=== PATIENT | male | born 1945 | race Caucasian/White ===

== ENCOUNTER 2017-07-19 06:34 | Outpatient (CLI) | payer OTHER | END 2017-07-19 06:43 | disposition home or self-care (01) | LOC: LAB 06:34 | DX: E03.8 Other specified hypothyroidism (principal); D68.8 Other specified coagulation defects; D64.89 Other specified anemias; E11.65 Type 2 diabetes mellitus with hyperglycemia; Z12.11 Encounter for screening for malignant neoplasm of colon; E78.2 Mixed hyperlipidemia ==

== ENCOUNTER → 2017-08-19 06:55 | Outpatient (CLI) | payer OTHER | END | disposition home or self-care (01) | LOC: LAB 06:55 | DX: I11.9 Hypertensive heart disease without heart failure (principal); E78.2 Mixed hyperlipidemia ==

== ENCOUNTER 2018-03-23 08:03 | Outpatient (CLI) | payer OTHER | END 2018-03-23 09:02 | disposition home or self-care (01) | LOC: LAB 08:03 | DX: E78.2 Mixed hyperlipidemia (principal); E11.65 Type 2 diabetes mellitus with hyperglycemia; D68.8 Other specified coagulation defects; D64.89 Other specified anemias; E03.8 Other specified hypothyroidism; N40.1 Benign prostatic hyperplasia with lower urinary tract symptoms; N39.0 Urinary tract infection, site not specified ==

== ENCOUNTER → 2018-03-23 15:42 | Outpatient (CLI) | payer OTHER | END | disposition home or self-care (01) | LOC: LAB 15:42 | DX: Z12.11 Encounter for screening for malignant neoplasm of colon (principal); D64.89 Other specified anemias ==

== ENCOUNTER 2018-09-29 07:13 | Outpatient (CLI) | payer OTHER | END 2018-09-29 15:00 | disposition home or self-care (01) | LOC: LAB 07:13 | DX: D68.8 Other specified coagulation defects (principal); D64.89 Other specified anemias; N39.0 Urinary tract infection, site not specified; Z12.11 Encounter for screening for malignant neoplasm of colon; E11.21 Type 2 diabetes mellitus with diabetic nephropathy; E11.65 Type 2 diabetes mellitus with hyperglycemia; E03.8 Other specified hypothyroidism ==

== ENCOUNTER 2018-10-02 09:54 | Outpatient (CLI) | payer OTHER | END 2018-10-02 09:58 | disposition home or self-care (01) | LOC: LAB 09:54 | DX: D68.8 Other specified coagulation defects (principal); D64.89 Other specified anemias; Z12.11 Encounter for screening for malignant neoplasm of colon; E11.21 Type 2 diabetes mellitus with diabetic nephropathy; E11.65 Type 2 diabetes mellitus with hyperglycemia; E03.8 Other specified hypothyroidism ==

== ENCOUNTER 2019-04-19 07:19 | Outpatient (CLI) | payer OTHER | END 2019-04-19 07:37 | disposition home or self-care (01) | LOC: LAB 07:19 | DX: D64.89 Other specified anemias (principal); D68.8 Other specified coagulation defects; E03.8 Other specified hypothyroidism; D51.0 Vitamin B12 deficiency anemia due to intrinsic factor deficiency ==

== ENCOUNTER 2019-04-23 10:47 | Emergency (ER) | payer OTHER ==
[~2019-04-23] VITALS: Ht 172.7 cm; Wt 81.6 kg
[2019-04-23] MEDS ORDERED: COZAAR100 MG PO (11:02)
[2019-04-23] MEDS ORDERED: AMLODIPINE-OLM1 EAC2 PO (11:03)
[2019-04-23] MEDS ORDERED: EUTHYROX25 MCG PO (11:04)
[2019-04-23] MEDS ORDERED: CELEBREX100 MG PO (15:28)
== END 2019-04-23 15:35 | disposition home or self-care (01) ==
LOC: ER 10:47
DX: M62.830 Muscle spasm of back (principal)

== ENCOUNTER 2020-02-12 07:12 | Outpatient (CLI) | payer OTHER ==
[~2020-02-12 07:12] MED LIST: AMLODIPINE-OLM1 EAC2 PO; CELEBREX100 MG PO; COZAAR100 MG PO; EUTHYROX25 MCG PO
== END 2020-02-12 07:30 | disposition home or self-care (01) ==
LOC: LAB 07:12
PROVIDERS: ATTEND Internal Medicine Cardiovascular Disease
DX: I11.9 Hypertensive heart disease without heart failure (principal); E78.1 Pure hyperglyceridemia; E03.8 Other specified hypothyroidism

== ENCOUNTER 2020-02-18 14:50 | Outpatient (CLI) | payer OTHER | END 2020-02-18 14:53 | disposition home or self-care (01) | LOC: RAD 14:50 | PROVIDERS: ATTEND Specialist | DX: M84.374A Stress fracture, right foot, initial encounter for fracture (principal) ==

== ENCOUNTER → 2020-04-30 06:49 | Outpatient (CLI) | payer OTHER | END | disposition home or self-care (01) | LOC: LAB 06:49 | PROVIDERS: ATTEND Internal Medicine Nephrology | DX: I10 Essential (primary) hypertension (principal); R80.8 Other proteinuria ==

== ENCOUNTER 2020-05-05 07:27 | Outpatient (CLI) | payer OTHER | END 2020-05-05 07:34 | disposition home or self-care (01) | LOC: LAB 07:27 | PROVIDERS: ATTEND Internal Medicine Nephrology | DX: I10 Essential (primary) hypertension (principal); R50.9 Fever, unspecified ==

== ENCOUNTER 2020-05-06 08:48 | Outpatient (CLI) | payer OTHER | END 2020-05-06 08:57 | disposition home or self-care (01) | LOC: SONOGRAMA 08:48 | PROVIDERS: ATTEND Internal Medicine Nephrology | DX: Q61.01 Congenital single renal cyst (principal); I10 Essential (primary) hypertension ==

== ENCOUNTER 2020-08-07 07:13 | Outpatient (CLI) | payer OTHER | END 2020-08-07 07:43 | disposition home or self-care (01) | LOC: LAB 07:13 | PROVIDERS: ATTEND Specialist | DX: E11.65 Type 2 diabetes mellitus with hyperglycemia (principal); D51.0 Vitamin B12 deficiency anemia due to intrinsic factor deficiency; N39.0 Urinary tract infection, site not specified; D64.89 Other specified anemias; U07.1 COVID-19; E78.2 Mixed hyperlipidemia ==

== ENCOUNTER 2020-09-17 07:10 | Outpatient (CLI) | payer OTHER | END 2020-09-17 07:16 | disposition home or self-care (01) | LOC: LAB 07:10 | PROVIDERS: ATTEND Internal Medicine Nephrology | DX: N18.2 Chronic kidney disease, stage 2 (mild) (principal); I10 Essential (primary) hypertension; R80.8 Other proteinuria ==

== ENCOUNTER 2020-11-07 07:01 | Outpatient (CLI) | payer OTHER | END 2020-11-07 07:06 | disposition home or self-care (01) | LOC: LAB 07:01 | PROVIDERS: ATTEND Specialist | DX: E03.8 Other specified hypothyroidism (principal); E78.2 Mixed hyperlipidemia; N40.1 Benign prostatic hyperplasia with lower urinary tract symptoms; D51.0 Vitamin B12 deficiency anemia due to intrinsic factor deficiency; D64.89 Other specified anemias ==

== ENCOUNTER → 2020-12-25 07:04 | Outpatient (CLI) | payer OTHER | END | disposition home or self-care (01) | LOC: LAB 07:04 | PROVIDERS: ATTEND Internal Medicine Nephrology | DX: I10 Essential (primary) hypertension (principal); R80.8 Other proteinuria; D68.8 Other specified coagulation defects; E78.2 Mixed hyperlipidemia ==

== ENCOUNTER 2021-02-17 06:59 | Outpatient (CLI) | payer OTHER | END 2021-02-17 07:00 | disposition home or self-care (01) | LOC: LAB 06:59 | PROVIDERS: ATTEND Specialist | DX: D64.89 Other specified anemias (principal); D68.8 Other specified coagulation defects; Z12.11 Encounter for screening for malignant neoplasm of colon; E11.65 Type 2 diabetes mellitus with hyperglycemia ==

== ENCOUNTER 2021-02-18 07:06 | Outpatient (CLI) | payer OTHER | END 2021-02-18 07:07 | disposition home or self-care (01) | LOC: LAB 07:06 | PROVIDERS: ATTEND Specialist | DX: D64.89 Other specified anemias (principal); E11.65 Type 2 diabetes mellitus with hyperglycemia; Z12.11 Encounter for screening for malignant neoplasm of colon; D68.8 Other specified coagulation defects; N40.1 Benign prostatic hyperplasia with lower urinary tract symptoms ==

== ENCOUNTER 2021-04-07 07:00 | Outpatient (CLI) | payer OTHER | END 2021-04-07 07:10 | disposition home or self-care (01) | LOC: LAB 07:00 | PROVIDERS: ATTEND Radiology Diagnostic Radiology | DX: R79.89 Other specified abnormal findings of blood chemistry (principal) ==

== ENCOUNTER 2021-04-08 09:29 | Outpatient (CLI) | payer OTHER | END 2021-04-08 09:50 | disposition home or self-care (01) | LOC: TOM 09:29 | PROVIDERS: ATTEND Internal Medicine Cardiovascular Disease | DX: R07.89 Other chest pain (principal) | CPT/HCPCS: 71260; Q9965; 71275 ==

== ENCOUNTER 2021-08-24 06:55 | Outpatient (CLI) | payer OTHER | END 2021-08-24 07:00 | disposition home or self-care (01) | LOC: LAB 06:55 | PROVIDERS: ATTEND Specialist | DX: D64.9 Anemia, unspecified (principal); D51.0 Vitamin B12 deficiency anemia due to intrinsic factor deficiency ==

== ENCOUNTER 2021-10-07 06:52 | Outpatient (CLI) | payer OTHER | END 2021-10-07 07:21 | disposition home or self-care (01) | LOC: LAB 06:52 | PROVIDERS: ATTEND Specialist | DX: E03.9 Hypothyroidism, unspecified (principal); N39.9 Disorder of urinary system, unspecified; N40.0 Benign prostatic hyperplasia without lower urinary tract symptoms; E78.2 Mixed hyperlipidemia; E11.65 Type 2 diabetes mellitus with hyperglycemia; Z12.11 Encounter for screening for malignant neoplasm of colon; D64.9 Anemia, unspecified; K75.81 Nonalcoholic steatohepatitis (NASH); D51.0 Vitamin B12 deficiency anemia due to intrinsic factor deficiency ==

== ENCOUNTER 2022-01-08 06:42 | Outpatient (CLI) | payer OTHER | END 2022-01-08 06:46 | disposition home or self-care (01) | LOC: LAB 06:42 | PROVIDERS: ATTEND Specialist | DX: E03.9 Hypothyroidism, unspecified (principal); E11.21 Type 2 diabetes mellitus with diabetic nephropathy; N39.9 Disorder of urinary system, unspecified; E78.2 Mixed hyperlipidemia; D64.9 Anemia, unspecified; E11.65 Type 2 diabetes mellitus with hyperglycemia; D51.0 Vitamin B12 deficiency anemia due to intrinsic factor deficiency ==

== ENCOUNTER 2022-03-26 07:03 | Outpatient (CLI) | payer OTHER | END 2022-03-26 07:06 | disposition home or self-care (01) | LOC: LAB 07:03 | PROVIDERS: ATTEND Internal Medicine Nephrology | DX: I12.9 Hypertensive chronic kidney disease with stage 1 through stage 4 chronic kidney disease, or unspecified chronic kidney disease (principal); N18.2 Chronic kidney disease, stage 2 (mild); R80.9 Proteinuria, unspecified ==

== ENCOUNTER 2022-12-06 07:05 | Outpatient (CLI) | payer OTHER | END 2022-12-06 07:06 | disposition home or self-care (01) | LOC: LAB 07:05 | PROVIDERS: ATTEND Specialist | DX: E11.21 Type 2 diabetes mellitus with diabetic nephropathy (principal); D64.9 Anemia, unspecified; N25.81 Secondary hyperparathyroidism of renal origin ==

== ENCOUNTER 2023-03-23 06:46 | Outpatient (CLI) | payer OTHER ==
[2023-03-23 08:22] LABS: HEMATOCRIT 35.2 % (39.0-48.0); HEMOGLOBIN 11.8 g/dL (13-16.00); MEAN CELL VOLUME 92.2 fL (80.0-100.00); MEAN CORPUSCULAR HGB CONC 33.6 g/dl (32.0-36.0); PLATELET COUNT 216 K/uL (150-450); RED BLOOD COUNT 3.81 M/uL (4.00-6.00); RED CELL DISTRIBUTION WIDTH 14.7 % (11.5-14.5)
[2023-03-23 08:28] LABS: URINE APPEARANCE Clear; URINE BILIRRUBIN Negative (NEGATIVE); URINE BLOOD Negative; URINE COLOR Yellow; URINE GLUCOSE Negative (NEGATIVE); URINE LEUKOCYTE Negative; URINE NITRATE Negative; URINE UROBILINOGEN 0.2 E.U./dl
[2023-03-23 08:32] LABS: URINE BACTERIA 8.8 uL (0.0-1933)
[2023-03-23 08:41] LABS: URINE EPITHELIAL CELLS 1.3 uL (0.0-38.8); URINE PROTEIN 100 (NEGATIVE); URINE RBC 1.7 uL (0.0-20.8); URINE WBC 1.3 uL (0.0-23.2)
[2023-03-23 09:11] LABS: ALBUMIN 3.7 gm/dL (3.4-5.0); ALKALINE PHOSPHATASE 72 U/L (50-136); ALT/SGPT 27 U/L (12-78); ANION GAP 5 (10.0-20.0); AST/SGOT 22 U/L (15-37); BILIRUBIN TOTAL 0.63 mg/dL (0.3-1.2); BLOOD UREA NITROGEN 33 mg/dL (7-18); BUN CREA RATIO 20 (7.0-25.0); CALCIUM 8.9 mg/dL (8.5-10.1); CARBON DIOXIDE 29 mEq/L (21-32); CHLORIDE 108 mmol/L (98-107); CHOLESTEROL 202 mg/dL (0-200); CREATININE SERUM 1.62 mg/dL (0.70-1.30); FERRITIN 104.1 NG/ML (26-388); FREE TRIODOTIRONINE 2.57 pg/ml (2.18-3.98); GFR 41.63; GLOBULINA 3.2 G/DL (2.4-3.5); GLUCOSE FASTING 105 mg/dL (65-100); HDL 50 mg/dl (40-60); LDH 206 U/L (87-241); LDL 126 mg/dl (0-130); OSMOLALITY SERUM 281 MOSM/KG (275-295); POTASSIUM 4.73 mEq/L (3.5-5.1); PROSTATIC SPECIFIC ANTIGEN 0.849 NG/ML (0.010-4.00); SODIUM 137 mmol/L (136-145); T4 FREE 0.92 NG/ML (0.76-1.46); TOTAL IRON BINDING CAPACITY 309 ug/dl (250-450); TOTAL PROTEIN 6.9 gm/dL (6.4-8.2); TRIGLYCERIDES 130 mg/dL (0-150); VLDL 26 (0-39)
[2023-03-23 09:15] LABS: C-REACTIVE PROTEIN < 0.29 MG/DL (0.00-0.29)
[2023-03-23 09:16] LABS: FOLIC ACID > 20.00 ng/ml (4.78-20); VITAMIN D3 25 HYDROXY 51.91 ng/ml (30-120)
[2023-03-23 10:55] LABS: MANUAL PLATELET COUNT 356
[2023-03-23 10:58] LABS: PLATELET ESTIMATE NORMAL (NORMAL)
== END 2023-03-23 06:47 | disposition home or self-care (01) ==
LOC: LAB 06:46
PROVIDERS: ATTEND Specialist
DX: D50.8 Other iron deficiency anemias (principal); R74.02 Elevation of levels of lactic acid dehydrogenase [LDH]; K76.89 Other specified diseases of liver; E55.9 Vitamin D deficiency, unspecified; E03.8 Other specified hypothyroidism; R97.8 Other abnormal tumor markers; R79.9 Abnormal finding of blood chemistry, unspecified; D51.1 Vitamin B12 deficiency anemia due to selective vitamin B12 malabsorption with proteinuria; D51.0 Vitamin B12 deficiency anemia due to intrinsic factor deficiency; E06.3 Autoimmune thyroiditis; D63.1 Anemia in chronic kidney disease; N18.31 Chronic kidney disease, stage 3a; R97.0 Elevated carcinoembryonic antigen [CEA]; E11.69 Type 2 diabetes mellitus with other specified complication; D64.89 Other specified anemias; Z13.220 Encounter for screening for lipoid disorders; R07.89 Other chest pain; N39.9 Disorder of urinary system, unspecified; Z12.5 Encounter for screening for malignant neoplasm of prostate; M00.08 Staphylococcal arthritis, vertebrae

== ENCOUNTER 2023-05-25 07:01 | Outpatient (CLI) | payer OTHER ==
[2023-05-25 07:52] LABS: PH,URINE 5.5 (5.0-8.0); URINE APPEARANCE Clear; URINE BILIRRUBIN Negative (NEGATIVE); URINE BLOOD Trace; URINE COLOR Yellow; URINE GLUCOSE Negative (NEGATIVE); URINE LEUKOCYTE Negative; URINE NITRATE Negative; URINE UROBILINOGEN 0.2 E.U./dl
[2023-05-25 07:55] LABS: URINE BACTERIA 15.1 uL (0.0-1933); URINE RBC 5.7 uL (0.0-20.8); URINE WBC 2.1 uL (0.0-23.2)
[2023-05-25 07:56] LABS: HEMATOCRIT 32.9 % (39.0-48.0); HEMOGLOBIN 11.3 g/dL (13-16.00); MEAN CELL VOLUME 94.2 fL (80.0-100.00); MEAN CORPUSCULAR HEMOGLOBIN 32.4 pg (27.00-32.0); MEAN CORPUSCULAR HGB CONC 34.4 g/dl (32.0-36.0); PLATELET COUNT 199 K/uL (150-450); RED CELL DISTRIBUTION WIDTH 14.1 % (11.5-14.5)
[2023-05-25 08:01] LABS: URINE EPITHELIAL CELLS 1.3 uL (0.0-38.8); URINE PROTEIN 100 (NEGATIVE)
[2023-05-25 08:48] LABS: ALBUMIN 3.5 gm/dL (3.4-5.0); CALCIUM 8.8 mg/dL (8.5-10.1); CREATININE SERUM 1.16 mg/dL (0.70-1.30); GFR 61.05; PHOSPHOROUS 2.8 mg/dL (2.5-4.9); POTASSIUM 4.4 mEq/L (3.5-5.1); URIC ACID 7.9 mg/dL (3.5-8.5)
== END 2023-05-25 07:02 | disposition home or self-care (01) ==
LOC: LAB 07:01
PROVIDERS: ATTEND Internal Medicine Nephrology
DX: I10 Essential (primary) hypertension (principal); R80.9 Proteinuria, unspecified

== ENCOUNTER → 2023-07-25 06:49 | Outpatient (CLI) | payer OTHER ==
[2023-07-25 07:42] LABS: PH,URINE 5.5 (5.0-8.0); URINE APPEARANCE Clear; URINE BILIRRUBIN Negative (NEGATIVE); URINE BLOOD Trace; URINE COLOR Yellow; URINE GLUCOSE Negative (NEGATIVE); URINE LEUKOCYTE Negative; URINE NITRATE Negative; URINE UROBILINOGEN 0.2 E.U./dl
[2023-07-25 07:45] LABS: URINE BACTERIA 12.5 uL (0.0-1933); URINE WBC 4.1 uL (0.0-23.2)
[2023-07-25 07:53] LABS: URINE PROTEIN 100 (NEGATIVE)
[2023-07-25 07:55] LABS: HEMATOCRIT 34.6 % (39.0-48.0); HEMOGLOBIN 11.8 g/dL (13-16.00); MEAN CELL VOLUME 92.4 fL (80.0-100.00); MEAN CORPUSCULAR HEMOGLOBIN 31.5 pg (27.00-32.0); PLATELET COUNT 205 K/uL (150-450); RED BLOOD COUNT 3.75 M/uL (4.00-6.00); RED CELL DISTRIBUTION WIDTH 13.7 % (11.5-14.5)
[2023-07-25 08:32] LABS: ALBUMIN 3.6 gm/dL (3.4-5.0); ALKALINE PHOSPHATASE 72 U/L (50-136); ALT/SGPT 25 U/L (12-78); ANION GAP 5 (10.0-20.0); AST/SGOT 25 U/L (15-37); BILIRUBIN TOTAL 0.61 mg/dL (0.3-1.2); BLOOD UREA NITROGEN 22 mg/dL (7-18); BUN CREA RATIO 17 (7.0-25.0); C-REACTIVE PROTEIN < 0.29 MG/DL (0.00-0.29); CALCIUM 8.7 mg/dL (8.5-10.1); CARBON DIOXIDE 32 mEq/L (21-32); CHLORIDE 108 mmol/L (98-107); CHOLESTEROL 190 mg/dL (0-200); CREATININE SERUM 1.28 mg/dL (0.70-1.30); FREE TRIODOTIRONINE 2.98 pg/ml (2.18-3.98); GFR 54.49; GLOBULINA 2.8 G/DL (2.4-3.5); GLUCOSE FASTING 107 mg/dL (65-100); HDL 47 mg/dl (40-60); LDL 126 mg/dl (0-130); OSMOLALITY SERUM 283 MOSM/KG (275-295); SODIUM 140 mmol/L (136-145); T4 FREE 1.01 NG/ML (0.76-1.46); TOTAL PROTEIN 6.4 gm/dL (6.4-8.2); TRIGLYCERIDES 83 mg/dL (0-150); VLDL 16 (0-39)
[2023-07-26 10:11] LABS: % FREE PSA 38.6 % (.); free psa 0.27 ng/mL; total psa 0.7 ng/mL (0.0-4.0)
== END | disposition home or self-care (01) ==
LOC: LAB 06:49
PROVIDERS: ATTEND Specialist
DX: N39.9 Disorder of urinary system, unspecified (principal); E03.8 Other specified hypothyroidism; E11.69 Type 2 diabetes mellitus with other specified complication; D64.89 Other specified anemias; M00.80 Arthritis due to other bacteria, unspecified joint; Z13.220 Encounter for screening for lipoid disorders; Z12.5 Encounter for screening for malignant neoplasm of prostate; E11.21 Type 2 diabetes mellitus with diabetic nephropathy

== ENCOUNTER 2024-01-30 06:52 | Outpatient (CLI) | payer OTHER ==
[2024-01-30 07:31] LABS: HEMATOCRIT 35.8 % (39.0-48.0); HEMOGLOBIN 11.9 g/dL (13-16.00); MEAN CELL VOLUME 91.6 fL (80.0-100.00); MEAN CORPUSCULAR HEMOGLOBIN 30.4 pg (27.00-32.0); MEAN CORPUSCULAR HGB CONC 33.2 g/dl (32.0-36.0); PLATELET COUNT 221 K/uL (150-450); RED BLOOD COUNT 3.91 M/uL (4.00-6.00); RED CELL DISTRIBUTION WIDTH 14.2 % (11.5-14.5)
[2024-01-30 07:52] LABS: URINE APPEARANCE Clear; URINE BILIRRUBIN Negative (NEGATIVE); URINE BLOOD Negative; URINE COLOR Yellow; URINE KETONE Negative (NEGATIVE); URINE LEUKOCYTE Negative; URINE NITRATE Negative; URINE PROTEIN 30 (NEGATIVE); URINE UROBILINOGEN 0.2 E.U./dl
[2024-01-30 07:56] LABS: URINE WBC 2.4 uL (0.0-23.2)
[2024-01-30 08:04] LABS: URINE EPITHELIAL CELLS 1.3 uL (0.0-38.8); URINE GLUCOSE >=1000 MG/DL (NEGATIVE); URINE RBC 1.2 uL (0.0-20.8)
[2024-01-30 08:22] LABS: ALBUMIN 3.7 gm/dL (3.4-5.0); BILIRUBIN TOTAL 0.47 mg/dL (0.3-1.2); BILIRUBIN,CONJUGATED 0.13 mg/dL (0.0-0.2); BILIRUBIN,UNCONJUGATED 0.34 mg/dL (0.0-0.6); CALCIUM 8.9 mg/dL (8.5-10.1); CHOL HDL RATIO 4.1 (0-5.0); CREATININE SERUM 1.48 mg/dL (0.70-1.30); GFR 46.09; POTASSIUM 4.65 mEq/L (3.5-5.1); TOTAL PROTEIN 7.2 gm/dL (6.4-8.2); TSH 2.74 uIU/mL (0.358-3.74)
[2024-01-30 09:21] LABS: C-REACTIVE PROTEIN 0.56 MG/DL (0.00-0.29)
== END 2024-01-30 06:53 | disposition home or self-care (01) ==
LOC: LAB 06:52
PROVIDERS: ATTEND Specialist
DX: E03.9 Hypothyroidism, unspecified (principal); N39.0 Urinary tract infection, site not specified; E78.2 Mixed hyperlipidemia; D64.9 Anemia, unspecified; J45.998 Other asthma; K75.81 Nonalcoholic steatohepatitis (NASH); E11.21 Type 2 diabetes mellitus with diabetic nephropathy

== ENCOUNTER → 2024-03-26 07:58 | Outpatient (CLI) | payer OTHER ==
[2024-03-26 09:32] LABS: HEMATOCRIT 35.2 % (39.0-48.0); HEMOGLOBIN 11.8 g/dL (13-16.00); MEAN CELL VOLUME 92.3 fL (80.0-100.00); MEAN CORPUSCULAR HEMOGLOBIN 30.9 pg (27.00-32.0); MEAN CORPUSCULAR HGB CONC 33.5 g/dl (32.0-36.0); PLATELET COUNT 204 K/uL (150-450); RED BLOOD COUNT 3.82 M/uL (4.00-6.00); RED CELL DISTRIBUTION WIDTH 15.2 % (11.5-14.5)
[2024-03-26 10:13] LABS: % SATURACION 22.6 % (20-50); ALBUMIN 3.7 gm/dL (3.4-5.0); BILIRUBIN TOTAL 0.6 mg/dL (0.3-1.2); CALCIUM 8.5 mg/dL (8.5-10.1); CREATININE SERUM 1.34 mg/dL (0.70-1.30); FERRITIN 74.7 NG/ML (26-388); GFR 51.69; GLOBULINA 3.2 G/DL (2.4-3.5); POTASSIUM 4.96 mEq/L (3.5-5.1); PROSTATIC SPECIFIC ANTIGEN 1.03 NG/ML (0.010-4.00); TOTAL PROTEIN 6.9 gm/dL (6.4-8.2)
[2024-03-26 12:00] LABS: FOLIC ACID > 20.00 ng/ml (4.78-20)
[2024-03-28 09:07] LABS: MANUAL PLATELET COUNT 432
[2024-03-28 09:08] LABS: PLATELET ESTIMATE NORMAL (NORMAL)
[2024-03-28 17:06] LABS: ERYTHROPOIETIN 13.6 mIU/mL (2.6-18.5)
== END | disposition home or self-care (01) ==
LOC: LAB 07:58
PROVIDERS: ATTEND Internal Medicine Hematology & Oncology
DX: E55.9 Vitamin D deficiency, unspecified (principal); D51.1 Vitamin B12 deficiency anemia due to selective vitamin B12 malabsorption with proteinuria; R97.0 Elevated carcinoembryonic antigen [CEA]; D63.1 Anemia in chronic kidney disease; N18.31 Chronic kidney disease, stage 3a; I10 Essential (primary) hypertension; D50.8 Other iron deficiency anemias; R79.9 Abnormal finding of blood chemistry, unspecified; R74.02 Elevation of levels of lactic acid dehydrogenase [LDH]; K76.89 Other specified diseases of liver

== ENCOUNTER → 2024-08-10 06:57 | Outpatient (CLI) | payer OTHER ==
[2024-08-10 07:57] LABS: HEMATOCRIT 36.2 % (39.0-48.0); MEAN CORPUSCULAR HEMOGLOBIN 31.2 pg (27.00-32.0); MEAN CORPUSCULAR HGB CONC 33.2 g/dl (32.0-36.0); PLATELET COUNT 211 K/uL (150-450); RED BLOOD COUNT 3.85 M/uL (4.00-6.00); RED CELL DISTRIBUTION WIDTH 13.9 % (11.5-14.5)
[2024-08-10 08:57] LABS: ALBUMIN 3.6 gm/dL (3.4-5.0); BILIRUBIN TOTAL 0.79 mg/dL (0.3-1.2); CALCIUM 8.8 mg/dL (8.5-10.1); CREATININE SERUM 1.45 mg/dL (0.70-1.30); GFR 47.07; GLOBULINA 3.1 G/DL (2.4-3.5); POTASSIUM 4.92 mEq/L (3.5-5.1); TOTAL PROTEIN 6.7 gm/dL (6.4-8.2)
[2024-08-10 09:15] LABS: FERRITIN 93.8 NG/ML (26-388)
[2024-08-10 09:16] LABS: % SATURACION 23.9 % (20-50)
[2024-08-10 09:28] LABS: PROSTATIC SPECIFIC ANTIGEN 0.96 NG/ML (0.010-4.00)
[2024-08-10 13:35] LABS: FOLIC ACID > 20.00 ng/ml (4.78-20)
[2024-08-10 13:44] LABS: MANUAL PLATELET COUNT 306; PLATELET ESTIMATE NORMAL (NORMAL)
[2024-08-13 09:17] LABS: ERYTHROPOIETIN 11.3 mIU/mL (2.6-18.5)
== END | disposition home or self-care (01) ==
LOC: LAB 06:57
PROVIDERS: ATTEND Internal Medicine Hematology & Oncology
DX: D50.8 Other iron deficiency anemias (principal); E55.9 Vitamin D deficiency, unspecified; D51.1 Vitamin B12 deficiency anemia due to selective vitamin B12 malabsorption with proteinuria; R97.0 Elevated carcinoembryonic antigen [CEA]; D63.1 Anemia in chronic kidney disease; N18.31 Chronic kidney disease, stage 3a; I10 Essential (primary) hypertension; R79.9 Abnormal finding of blood chemistry, unspecified; R94.02 Abnormal brain scan; K76.89 Other specified diseases of liver

== ENCOUNTER → 2025-02-05 07:00 | Outpatient (CLI) | payer OTHER ==
[2025-02-05 08:51] LABS: ALT/SGPT 27.0 U/L (12-78); AST/SGOT 21.0 U/L (15-37); BILIRUBIN TOTAL 0.77 mg/dL (0.3-1.2); BUN CREA RATIO 18.0 (7.0-25.0); CHOL HDL RATIO 2.9 (0-5.0); CREATININE SERUM 1.37 mg/dL (0.70-1.30); GFR 50.25; GLOBULINA 2.8 G/DL (2.4-3.5); GLUCOSE FASTING 102.0 mg/dL (65-100); HDL 52.0 mg/dl (40-60); LDL 85.0 mg/dl (0-130); OSMOLALITY SERUM 289.0 MOSM/KG (275-295); TSH 2.28 uIU/mL (0.358-3.74); VLDL 13.0 (0-39)
== END | disposition home or self-care (01) ==
LOC: LAB 07:00
PROVIDERS: ATTEND Specialist
DX: E03.9 Hypothyroidism, unspecified (principal); E11.21 Type 2 diabetes mellitus with diabetic nephropathy; E78.2 Mixed hyperlipidemia; E11.65 Type 2 diabetes mellitus with hyperglycemia

== ENCOUNTER 2025-02-11 14:59 | Inpatient (IN) | payer OTHER ==
[~2025-02-11] VITALS: Ht 165.1 cm; Wt 68.0 kg
[2025-02-11] MEDS ORDERED: CANDESARTAN CIL32 MG PO (15:23)
[2025-02-11] MEDS ORDERED: 0.9 % SODIUM CHLORIDE 1,000 ML IV SCH ×2 (16:15→18:45)
[2025-02-11] MEDS ORDERED: ENOXAPARIN SODIUM 80 MG/0.8 ML SYRINGE SUBCUTANEO SCH (16:15)
[2025-02-11] MEDS ORDERED: METOPROLOL SUCCINATE 25 MG TAB.SR.24H PO SCH (16:15)
[2025-02-11] MEDS ORDERED: JARDIANCE10 MG (16:25)
[2025-02-11] MEDS ORDERED: VITAMIN B-121000 MC4 (16:25)
[2025-02-11] MEDS ORDERED: CARDURA XL4 MG (16:26)
[2025-02-11 16:42] LABS: BASO % 1.0 % (0.1-1.2); EOS # 0.40 (0.04-0.54); EOS % 5.8 % (0.7-7.0); LYMPH # 1.87 (1.18-3.74); LYMPH % 26.9 % (19.3-53.1); MEAN PLATELET VOLUME 10.70 fl (9.4-12.4); MONO # 0.66 (0.24-0.82); MONO % 9.5 % (4.7-12.5); NEUT # 3.93 (1.56-6.13); NEUT % 56.7 % (34.0-71.1); RED CELL DISTRIBUTION WIDTH 14.8 % (11.6-14.4)
[2025-02-11 16:49] LABS: URINE APPEARANCE Clear; URINE BACTERIA 5.9 uL (0.0-1933); URINE BILIRRUBIN Negative (NEGATIVE); URINE BLOOD Negative; URINE COLOR Yellow; URINE EPITHELIAL CELLS 1.9 uL (0.0-38.8); URINE KETONE Trace (NEGATIVE); URINE LEUKOCYTE Negative; URINE NITRATE Negative; URINE PROTEIN 30 (NEGATIVE); URINE UROBILINOGEN 0.2 E.U./dl
[2025-02-11 17:00] LABS: COVID-19 AG NEGATIVE (NEGATIVE)
[2025-02-11 17:09] LABS: INR 1.05
[2025-02-11 17:16] LABS: URINE CAST 0.00 uL (0.0-1.40); URINE GLUCOSE >=1000 MG/DL (NEGATIVE); URINE RBC 0.8 uL (0.0-20.8); URINE WBC 1.0 uL (0.0-23.2)
[2025-02-11 17:27] LABS: ALT/SGPT 24.0 U/L (12-78); AST/SGOT 21.0 U/L (15-37); BILIRUBIN TOTAL 0.89 mg/dL (0.3-1.2); BUN CREA RATIO 20.0 (7.0-25.0); CREATININE SERUM 1.43 mg/dL (0.70-1.30); GFR 47.83; GLOBULINA 3.0 G/DL (2.4-3.5); GLUCOSE FASTING 103.0 mg/dL (65-100); LDH 195.0 U/L (87-241); OSMOLALITY SERUM 289.0 MOSM/KG (275-295); PHOSPHOKINASE CREATININE 187.0 U/L (39-308); TSH 1.9 uIU/mL (0.358-3.74)
[2025-02-11] MEDS ORDERED: ACETAMINOPHEN 500 MG GEL..CAP PO PRN (19:00)
[2025-02-11 21:03] VITALS: BP 113/69; O2SAT 99
[2025-02-12 01:28] VITALS: BP 150/70; O2SAT 98
[2025-02-12] MEDS ORDERED: LEVOTHYROXINE SODIUM 25 MCG TABLET PO SCH (06:00)
[2025-02-12 08:36] VITALS: BP 155/71; O2SAT 95
[2025-02-12] MEDS ORDERED: ENOXAPARIN SODIUM 80 MG/0.8 ML SYRINGE SUBCUTANEO SCH (09:00)
[2025-02-12] MEDS ORDERED: APIXABAN 5 MG TABLET PO SCH (09:00)
[2025-02-12] MEDS ORDERED: FAMOTIDINE/PF 20 MG in 0.9 % SODIUM CHLORIDE 8 ML IV PUSH SCH (09:00)
[2025-02-12] MEDS ORDERED: CANDESARTAN CILEXETIL 32 MG TABLET PO SCH (09:00)
[2025-02-12] MEDS ORDERED: DOXAZOSIN MESYLATE 4 MG TABLET PO SCH (17:00)
[2025-02-12 18:41] VITALS: BP 143/69; O2SAT 97
[2025-02-13 00:39] VITALS: BP 139/70; O2SAT 95
[2025-02-13 06:47] LABS: BASO % 1.0 % (0.1-1.2); EOS # 0.40 (0.04-0.54); EOS % 5.0 % (0.7-7.0); LYMPH # 2.30 (1.18-3.74); LYMPH % 28.7 % (19.3-53.1); MEAN PLATELET VOLUME 11.50 fl (9.4-12.4); MONO # 0.72 (0.24-0.82); MONO % 9.0 % (4.7-12.5); NEUT # 4.50 (1.56-6.13); NEUT % 56.1 % (34.0-71.1); RED CELL DISTRIBUTION WIDTH 14.9 % (11.6-14.4)
[2025-02-13 07:21] LABS: BUN CREA RATIO 19.0 (7.0-25.0); CREATININE SERUM 1.36 mg/dL (0.70-1.30); GFR 50.68; GLUCOSE FASTING 87.0 mg/dL (65-100); OSMOLALITY SERUM 289.0 MOSM/KG (275-295)
[2025-02-13 07:54] VITALS: BP 138/70
== END 2025-02-13 10:16 | disposition home or self-care (01) | DRG 309 ==
LOC: ER 14:59 → MEDJ 18:53
PROVIDERS: General Practice; Internal Medicine Nephrology; ADMIT Specialist; ATTEND Specialist
PROC: B246ZZZ Ultrasonography of Right and Left Heart (ICD-10-PCS; principal; 2025-02-11)
PROC: 4A12X4Z Monitoring of Cardiac Electrical Activity, External Approach (ICD-10-PCS; 2025-02-11)
DX: I48.0 Paroxysmal atrial fibrillation (principal); I13.0 Hypertensive heart and chronic kidney disease with heart failure and stage 1 through stage 4 chronic kidney disease, or unspecified chronic kidney disease; I50.9 Heart failure, unspecified; N18.32 Chronic kidney disease, stage 3b; D51.9 Vitamin B12 deficiency anemia, unspecified

== ENCOUNTER 2025-03-29 06:38 | Outpatient (CLI) | payer OTHER ==
[~2025-03-29 06:38] MED LIST changes: +CANDESARTAN CIL32 MG PO; +CARDURA XL4 MG; +JARDIANCE10 MG; +VITAMIN B-121000 MC4
[2025-03-29 07:44] LABS: BASO % 1.1 % (0.1-1.2); EOS # 0.46 (0.04-0.54); EOS % 7.0 % (0.7-7.0); LYMPH # 1.83 (1.18-3.74); LYMPH % 27.7 % (19.3-53.1); MEAN PLATELET VOLUME 11.30 fl (9.4-12.4); MONO # 0.56 (0.24-0.82); MONO % 8.5 % (4.7-12.5); NEUT # 3.67 (1.56-6.13); NEUT % 55.4 % (34.0-71.1); RED CELL DISTRIBUTION WIDTH 13.9 % (11.6-14.4)
[2025-03-29 08:51] LABS: % SATURACION 16.8 % (20-50); ALT/SGPT 30.0 U/L (12-78); AST/SGOT 18.0 U/L (15-37); BILIRUBIN TOTAL 0.89 mg/dL (0.3-1.2); BUN CREA RATIO 22.0 (7.0-25.0); CREATININE SERUM 1.49 mg/dL (0.70-1.30); FE 51.0 ug/dl (65-175); GFR 45.61; GLOBULINA 2.9 G/DL (2.4-3.5); GLUCOSE FASTING 101.0 mg/dL (65-100); LDH 182.0 U/L (87-241); OSMOLALITY SERUM 291.0 MOSM/KG (275-295); PROSTATIC SPECIFIC ANTIGEN 1.02 NG/ML (0.010-4.00)
[2025-03-29 10:59] LABS: FOLIC ACID > 20.00 ng/ml (4.78-20)
== END 2025-03-29 06:47 | disposition home or self-care (01) ==
LOC: LAB 06:38
PROVIDERS: ATTEND Internal Medicine Hematology & Oncology
DX: E55.9 Vitamin D deficiency, unspecified (principal); D51.1 Vitamin B12 deficiency anemia due to selective vitamin B12 malabsorption with proteinuria; R97.0 Elevated carcinoembryonic antigen [CEA]; D63.1 Anemia in chronic kidney disease; N18.31 Chronic kidney disease, stage 3a; I10 Essential (primary) hypertension; D50.8 Other iron deficiency anemias; R79.9 Abnormal finding of blood chemistry, unspecified; R74.02 Elevation of levels of lactic acid dehydrogenase [LDH]; K76.89 Other specified diseases of liver

== ENCOUNTER → 2025-04-10 06:44 | Outpatient (CLI) | payer OTHER ==
[2025-04-10 08:17] LABS: BUN CREA RATIO 22.0 (7.0-25.0); CREATININE SERUM 1.62 mg/dL (0.70-1.30); GFR 41.41; GLUCOSE FASTING 104.0 mg/dL (65-100); OSMOLALITY SERUM 290.0 MOSM/KG (275-295)
[2025-04-10 08:18] LABS: CREATININE SERUM 1.55 mg/dL (0.70-1.30)
== END | disposition home or self-care (01) ==
LOC: LAB 06:44
PROVIDERS: ATTEND Internal Medicine
DX: R94.4 Abnormal results of kidney function studies (principal); E11.9 Type 2 diabetes mellitus without complications

== ENCOUNTER 2025-04-22 22:51 | Emergency (ER) | payer OTHER ==
[~2025-04-22] VITALS: Ht 175.3 cm; Wt 79.4 kg
[2025-04-22] MEDS ORDERED: TOPROL XL25 M1 PO (23:23)
[2025-04-23] MEDS ORDERED: DIPHENHYDRAMINE HCL 50 MG/ML VIAL 1ML IM STA (01:03)
[2025-04-23] MEDS ORDERED: METHYLPREDNISOLONE SOD SUCC 125 MG VIAL IM STA (01:04)
[2025-04-23] MEDS ORDERED: 0.9 % SODIUM CHLORIDE 1,000 ML IV STA (01:04)
[2025-04-23] MEDS ORDERED: METHYLPREDNISOLONE SOD SUCC 125 MG VIAL ONE (01:13)
[2025-04-23] MEDS ORDERED: DIPHENHYDRAMINE HCL 50 MG/ML VIAL 1ML ONE (01:13)
[2025-04-23] MEDS ORDERED: ACETAMINOPHEN 500 MG GEL..CAP PO ONE (01:14)
[2025-04-23] MEDS ORDERED: WATER FOR INJ.,BACTERIOSTATIC 30 ML VIAL IJ ONE (01:16)
[2025-04-23] MEDS ORDERED: MEDROLPACK PO (03:16)
[2025-04-23] MEDS ORDERED: PEPCID AC20 MG PO (03:16)
[2025-04-23] MEDS ORDERED: ZYRTEC10 M3 PO (03:16)
[2025-04-23] MEDS ORDERED: HYDROXYZINE PAM25 MG PO (03:20)
== END 2025-04-23 03:39 | disposition home or self-care (01) ==
LOC: ER 22:52
DX: L50.9 Urticaria, unspecified (principal); R21 Rash and other nonspecific skin eruption; I10 Essential (primary) hypertension; E03.8 Other specified hypothyroidism
CPT/HCPCS: 96365; 96372; 99282; J1200; J3490; J7030

== ENCOUNTER 2025-04-23 07:47 | Emergency (ER) | payer OTHER ==
[~2025-04-23] VITALS: Ht 175.3 cm; Wt 79.4 kg
[~2025-04-23 07:47] MED LIST changes: +HYDROXYZINE PAM25 MG PO; +MEDROLPACK PO; +PEPCID AC20 MG PO; +TOPROL XL25 M1 PO; +ZYRTEC10 M3 PO
[2025-04-23] MEDS ORDERED: DEXAMETHASONE SODIUM PHOSPHATE 4 MG/ML VIAL IM STA (08:23)
[2025-04-23] MEDS ORDERED: KETOROLAC TROMETHAMINE 30 MG VIAL IM STA ×2 (08:23→13:33)
[2025-04-23] MEDS ORDERED: KETOROLAC TROMETHAMINE 30 MG VIAL ONE ×2 (08:28→13:45)
[2025-04-23] MEDS ORDERED: DEXAMETHASONE SODIUM PHOSPHATE 4 MG/ML VIAL ONE (08:29)
[2025-04-23 14:55] VITALS: BP 110/80; O2SAT 100
== END 2025-04-23 14:57 | disposition home or self-care (01) ==
LOC: ER 07:48
DX: S76.112A Strain of left quadriceps muscle, fascia and tendon, initial encounter (principal); S80.02XA Contusion of left knee, initial encounter; W18.39XA Other fall on same level, initial encounter; Y93.89 Activity, other specified; Y92.018 Other place in single-family (private) house as the place of occurrence of the external cause; Y99.9 Unspecified external cause status; I10 Essential (primary) hypertension
CPT/HCPCS: 73560; 96372; 99283; J1100; J1885

== ENCOUNTER → 2025-04-24 | Outpatient (CLI) | payer OTHER ==
[~2025-04-24] VITALS: Ht 175.3 cm; Wt 79.4 kg
[~2025-04-24] MED LIST changes: +ATIVAN1 M1 PO; +ESCITALOPRA5 MG/5 ML PO; +TEMAZEPAM15 MG PO
[2025-04-24 11:49] LABS: BASO % 0.5 % (0.1-1.2); EOS # 0.47 (0.04-0.54); EOS % 3.7 % (0.7-7.0); LYMPH # 2.24 (1.18-3.74); LYMPH % 17.5 % (19.3-53.1); MEAN PLATELET VOLUME 11.30 fl (9.4-12.4); MONO # 1.29 (0.24-0.82); MONO % 10.1 % (4.7-12.5); NEUT # 8.72 (1.56-6.13); NEUT % 67.9 % (34.0-71.1); RED CELL DISTRIBUTION WIDTH 13.5 % (11.6-14.4)
[2025-04-24 11:57] LABS: URINE APPEARANCE Clear; URINE BILIRRUBIN Negative (NEGATIVE); URINE BLOOD Negative; URINE COLOR Yellow; URINE KETONE Negative (NEGATIVE); URINE LEUKOCYTE Negative; URINE NITRATE Negative; URINE PROTEIN Negative (NEGATIVE); URINE UROBILINOGEN 0.2 E.U./dl
[2025-04-24 12:00] LABS: URINE BACTERIA 7.1 uL (0.0-1933); URINE CAST 2.19 uL (0.0-1.40); URINE EPITHELIAL CELLS 2.2 uL (0.0-38.8); URINE WBC 3.2 uL (0.0-23.2)
[2025-04-24 12:06] VITALS: BP 120/70
[2025-04-24 12:08] LABS: URINE GLUCOSE 250 MG/DL (NEGATIVE); URINE RBC 1.4 uL (0.0-20.8)
[2025-04-24 12:29] LABS: INR 1.09
[2025-04-24 12:32] LABS: ALT/SGPT 36.0 U/L (12-78); AST/SGOT 43.0 U/L (15-37); BILIRUBIN TOTAL 1.13 mg/dL (0.3-1.2); BUN CREA RATIO 26.0 (7.0-25.0); CREATININE SERUM 2.53 mg/dL (0.70-1.30); GFR 24.76; GLOBULINA 3.0 G/DL (2.4-3.5); GLUCOSE FASTING 105.0 mg/dL (65-100); OSMOLALITY SERUM 297.0 MOSM/KG (275-295)
[2025-04-24 13:22] LABS: COL ADP >300 SECONDS (56-102); COL EPI 147 SECONDS (82-175)
== END | disposition home or self-care (01) ==
LOC: RAD 07:00 → CIR.AMB 04-29 10:49 → EDSTATUS 04-29 11:00 → CIR.AMB 04-29 11:00
PROVIDERS: ATTEND Orthopaedic Surgery
DX: D64.9 Anemia, unspecified (principal); E88.89 Other specified metabolic disorders; D68.8 Other specified coagulation defects; N39.0 Urinary tract infection, site not specified; Z22.322 Carrier or suspected carrier of Methicillin resistant Staphylococcus aureus; E11.9 Type 2 diabetes mellitus without complications; Z76.89 Persons encountering health services in other specified circumstances; I10 Essential (primary) hypertension

== ENCOUNTER 2025-04-29 12:18 | Inpatient (IN) | payer OTHER ==
[~2025-04-29] VITALS: Ht 152.4 cm; Wt 79.4 kg
[~2025-04-29 12:18] MED LIST changes: -ATIVAN1 M1 PO; -ESCITALOPRA5 MG/5 ML PO; -TEMAZEPAM15 MG PO
--- NOTE | 2025-04-29 13:45 | NUR ---
SE RECIBE MASCULINO ALERTA Y ORIENTADO X3 QUIEN VINO A ER REFERIDO POR DR KWON PARA SER ADMITIDO. SE MIDEN S/V Y SE UBICA.
[2025-04-29] MEDS ORDERED: 0.9 % SODIUM CHLORIDE 1,000 ML IV SCH ×2 (14:00→18:15)
[2025-04-29] MEDS ORDERED: FAMOTIDINE/PF 20 MG in 0.9 % SODIUM CHLORIDE 8 ML IV PUSH ONE (14:00)
[2025-04-29] MEDS ORDERED: SODIUM POLYSTYRENE SULFONATE 30G/8 TSP PO ONE (14:00)
[2025-04-29] MEDS ORDERED: DEXTROSE 50 % IN WATER 0.5 G/ML VIAL IV ONE (14:15)
[2025-04-29] MEDS ORDERED: INSULIN REGULAR, HUMAN 1,000 UNIT/10 ML UNITS IV ONE (14:15)
[2025-04-29] MEDS ORDERED: CALCIUM GLUCONATE 100 MG/ML VIAL IV ONE (14:15)
[2025-04-29 16:28] LABS: BASO % 0.5 % (0.1-1.2); EOS # 0.62 (0.04-0.54); EOS % 5.4 % (0.7-7.0); LYMPH # 2.29 (1.18-3.74); LYMPH % 19.9 % (19.3-53.1); MEAN PLATELET VOLUME 10.80 fl (9.4-12.4); MONO # 0.90 (0.24-0.82); MONO % 7.8 % (4.7-12.5); NEUT # 7.60 (1.56-6.13); NEUT % 66.0 % (34.0-71.1); RED CELL DISTRIBUTION WIDTH 13.7 % (11.6-14.4)
--- NOTE | 2025-04-29 16:41 | NUR ---
PTE EVALUADO POR EL DR. GONZALES. SE OIRNETA SOBRE TRATAMIENTO, VERBALZIA ENTENDER. SE CANALIZA, COLECTA MUESTRAS DE LAB Y SE ADMIINISTRA MEDICAMENTO LEAH ORDEN MEDICA BAJO MEDIDAS ASEPTICAS.
[2025-04-29 16:48] LABS: INR 1.07
[2025-04-29 16:54] LABS: ALT/SGPT 34.0 U/L (12-78); AST/SGOT 16.0 U/L (15-37); BILIRUBIN TOTAL 1.24 mg/dL (0.3-1.2); BUN CREA RATIO 29.0 (7.0-25.0); CREATININE SERUM 1.77 mg/dL (0.70-1.30); GFR 37.3; GLOBULINA 3.3 G/DL (2.4-3.5); GLUCOSE FASTING 141.0 mg/dL (65-100); OSMOLALITY SERUM 298.0 MOSM/KG (275-295)
[2025-04-29 16:58] LABS: URINE APPEARANCE Clear; URINE BILIRRUBIN Negative (NEGATIVE); URINE BLOOD Negative; URINE COLOR Yellow; URINE KETONE Negative (NEGATIVE); URINE LEUKOCYTE Negative; URINE NITRATE Negative; URINE PROTEIN Negative (NEGATIVE); URINE UROBILINOGEN 0.2 E.U./dl
[2025-04-29 17:02] LABS: URINE BACTERIA 22.7 uL (0.0-1933); URINE WBC 1.8 uL (0.0-23.2)
[2025-04-29 17:07] LABS: URINE CAST 0.00 uL (0.0-1.40); URINE EPITHELIAL CELLS 0.6 uL (0.0-38.8); URINE GLUCOSE 100 MG/DL (NEGATIVE); URINE RBC 1.6 uL (0.0-20.8)
[2025-04-29] MEDS ORDERED: FAMOTIDINE/PF 20 MG in 0.9 % SODIUM CHLORIDE 100 ML IV SCH (18:17)
[2025-04-29] MEDS ORDERED: NIFEDIPINE 30 MG TAB.SA.OSM PO PRN (18:30)
[2025-04-29 18:53] VITALS: BP 130/80
[2025-04-29 21:02] VITALS: BP 137/62; O2SAT 99
[2025-04-30] MEDS ORDERED: LEVOTHYROXINE SODIUM 25 MCG TABLET PO SCH (06:00)
[2025-04-30 06:35] LABS: BUN CREA RATIO 32.0 (7.0-25.0); CREATININE SERUM 1.33 mg/dL (0.70-1.30); GFR 51.87; GLUCOSE FASTING 96.0 mg/dL (65-100); OSMOLALITY SERUM 293.0 MOSM/KG (275-295)
[2025-04-30] MEDS ORDERED: CEFAZOLIN SODIUM 1,000 MG VIAL IV NR (08:30)
[2025-04-30] MEDS ORDERED: SODIUM POLYSTYRENE SULFONATE 30G/8 TSP PO SCH ×2 (09:00→17:00)
[2025-04-30] MEDS ORDERED: METOPROLOL SUCCINATE 25 MG TAB.SR.24H PO SCH (09:00)
[2025-04-30] MEDS ORDERED: CEFAZOLIN SODIUM 2,000 MG in 0.9 % SODIUM CHLORIDE 100 ML IV SCH (10:00)
[2025-04-30 16:00] VITALS: BP 137/56; O2SAT 99
[2025-04-30] MEDS ORDERED: ENOXAPARIN SODIUM 80 MG/0.8 ML SYRINGE SUBCUTANEO SCH (17:00)
[2025-04-30] MEDS ORDERED: ZOLPIDEM TARTRATE 5 MG TABLET PO SCH (21:00)
[2025-05-01 00:30] VITALS: BP 141/63; O2SAT 98
[2025-05-01 06:15] LABS: BASO % 0.5 % (0.1-1.2); EOS # 0.72 (0.04-0.54); EOS % 6.3 % (0.7-7.0); LYMPH # 1.91 (1.18-3.74); LYMPH % 16.6 % (19.3-53.1); MEAN PLATELET VOLUME 11.40 fl (9.4-12.4); MONO # 1.18 (0.24-0.82); MONO % 10.3 % (4.7-12.5); NEUT # 7.58 (1.56-6.13); NEUT % 65.8 % (34.0-71.1); RED CELL DISTRIBUTION WIDTH 13.7 % (11.6-14.4)
[2025-05-01 06:48] LABS: ALT/SGPT 25.0 U/L (12-78); AST/SGOT 14.0 U/L (15-37); BILIRUBIN TOTAL 1.58 mg/dL (0.3-1.2); BUN CREA RATIO 26.0 (7.0-25.0); CREATININE SERUM 1.34 mg/dL (0.70-1.30); GFR 51.42; GLOBULINA 2.6 G/DL (2.4-3.5); GLUCOSE FASTING 106.0 mg/dL (65-100); OSMOLALITY SERUM 293.0 MOSM/KG (275-295)
[2025-05-01] MEDS ORDERED: CLONAZEPAM 0.5 MG TABLET PO ONE (09:15)
[2025-05-01] MEDS ORDERED: ENOXAPARIN SODIUM 80 MG/0.8 ML SYRINGE SUBCUTANEO NR (11:15)
[2025-05-01] MEDS ORDERED: SOD FERRIC GLUC COMPLX/SUCROSE 62.5 MG in 0.9 % SODIUM CHLORIDE 50 ML IV NR (11:15)
[2025-05-01] MEDS ORDERED: SIMETHICONE 125 MG CAPSULE PO SCH (13:00)
[2025-05-01 16:49] VITALS: BP 146/69; O2SAT 99
[2025-05-01] MEDS ORDERED: ENOXAPARIN SODIUM 80 MG/0.8 ML SYRINGE SUBCUTANEO SCH (21:00)
[2025-05-01] MEDS ORDERED: CLONAZEPAM 1 MG TABLET PO SCH (21:00)
[2025-05-02 01:13] VITALS: BP 134/67; O2SAT 98
[2025-05-02 07:30] VITALS: BP 118/65; O2SAT 98
[2025-05-02 08:07] LABS: BASO % 0.5 % (0.1-1.2); EOS # 0.72 (0.04-0.54); EOS % 6.6 % (0.7-7.0); LYMPH # 1.98 (1.18-3.74); LYMPH % 18.2 % (19.3-53.1); MEAN PLATELET VOLUME 11.00 fl (9.4-12.4); MONO # 1.38 (0.24-0.82); NEUT # 6.68 (1.56-6.13); NEUT % 61.5 % (34.0-71.1); RED CELL DISTRIBUTION WIDTH 13.4 % (11.6-14.4)
[2025-05-02 08:20] LABS: MONO % 12.7 % (4.7-12.5)
[2025-05-02 08:57] LABS: ALT/SGPT 30.0 U/L (12-78); AST/SGOT 18.0 U/L (15-37); BILIRUBIN TOTAL 1.67 mg/dL (0.3-1.2); BUN CREA RATIO 29.0 (7.0-25.0); CREATININE SERUM 1.26 mg/dL (0.70-1.30); GFR 55.21; GLOBULINA 2.5 G/DL (2.4-3.5); GLUCOSE FASTING 106.0 mg/dL (65-100); OSMOLALITY SERUM 296.0 MOSM/KG (275-295)
[2025-05-02] MEDS ORDERED: SOD FERRIC GLUC COMPLX/SUCROSE 62.5 MG in 0.9 % SODIUM CHLORIDE 50 ML IV SCH (09:00)
[2025-05-02] MEDS ORDERED: AMINO ACIDS/PROTEIN HYDROLYS 30 ML BLIST.PACK PO SCH (10:02)
[2025-05-02 23:15] VITALS: BP 130/62; O2SAT 97
[2025-05-03 07:48] VITALS: BP 112/62; O2SAT 96
[2025-05-03] MEDS ORDERED: ENOXAPARIN SODIUM 60 MG/0.6 ML SYRINGE SUBCUTANEO SCH (09:00)
[2025-05-03] MEDS ORDERED: Cyanocobalamin/Mecobalamin 1 TAB.SL SL NR (13:00)
[2025-05-03 16:30] VITALS: BP 122/63; O2SAT 99
[2025-05-04 00:53] VITALS: BP 119/72; O2SAT 97
[2025-05-04 08:00] VITALS: BP 133/56; O2SAT 98
[2025-05-04] MEDS ORDERED: Cyanocobalamin/Mecobalamin 1 TAB.SL SL SCH (09:00)
[2025-05-04 16:59] VITALS: BP 129/65; O2SAT 99
[2025-05-05 01:23] VITALS: BP 117/62; O2SAT 100
[2025-05-05 07:55] LABS: BASO % 0.7 % (0.1-1.2); EOS # 0.70 (0.04-0.54); EOS % 7.8 % (0.7-7.0); LYMPH # 2.14 (1.18-3.74); LYMPH % 23.9 % (19.3-53.1); MEAN PLATELET VOLUME 11.40 fl (9.4-12.4); MONO # 0.88 (0.24-0.82); MONO % 9.8 % (4.7-12.5); NEUT # 5.11 (1.56-6.13); NEUT % 57.0 % (34.0-71.1); RED CELL DISTRIBUTION WIDTH 13.9 % (11.6-14.4)
[2025-05-05 08:00] VITALS: BP 127/69; BP 146/66; O2SAT 100; O2SAT 99
[2025-05-05 08:06] LABS: BUN CREA RATIO 35.0 (7.0-25.0); CREATININE SERUM 1.15 mg/dL (0.70-1.30); GFR 61.34; GLUCOSE FASTING 94.0 mg/dL (65-100); OSMOLALITY SERUM 291.0 MOSM/KG (275-295)
[2025-05-05 16:58] VITALS: BP 126/72; O2SAT 99
[2025-05-05] MEDS ORDERED: POTASSIUM PHOS M BASIC D BASIC IV ONE (17:00)
[2025-05-05] MEDS ORDERED: POTASSIUM PHOS,M-BASIC-D-BASIC 3 MM/ML VIAL IV ONE (21:00)
[2025-05-06 00:30] VITALS: BP 136/74; O2SAT 97
[2025-05-06 08:00] VITALS: BP 151/55; O2SAT 98
[2025-05-06 09:23] LABS: BASO % 0.4 % (0.1-1.2); EOS # 0.69 (0.04-0.54); EOS % 6.7 % (0.7-7.0); LYMPH # 1.75 (1.18-3.74); LYMPH % 17.0 % (19.3-53.1); MEAN PLATELET VOLUME 10.20 fl (9.4-12.4); MONO # 0.91 (0.24-0.82); MONO % 8.8 % (4.7-12.5); NEUT # 6.89 (1.56-6.13); NEUT % 66.8 % (34.0-71.1); RED CELL DISTRIBUTION WIDTH 14.4 % (11.6-14.4)
[2025-05-06] MEDS ORDERED: CEFAZOLIN SODIUM 1,000 MG VIAL IV ONE (19:00)
[2025-05-06] MEDS ORDERED: PROMETHAZINE HCL 50 MG/ML AMPUL IM PRN (19:15)
[2025-05-06] MEDS ORDERED: ONDANSETRON 4 MG TAB.RAPDIS PO PRN (19:15)
[2025-05-06] MEDS ORDERED: ONDANSETRON HCL 2 MG/ML VIAL IV PRN (19:15)
[2025-05-06] MEDS ORDERED: TRAMADOL HCL 50 MG TABLET PO PRN (19:15)
[2025-05-06] MEDS ORDERED: SODIUM CHLORIDE 0.45 % 1,000 ML IV SCH (19:15)
[2025-05-06] MEDS ORDERED: ACETAMINOPHEN 325 MG TABLET PO SCH (21:00)
[2025-05-06] MEDS ORDERED: ENOXAPARIN SODIUM 30 MG/0.3 ML SYRINGE SUBCUTANEO SCH (21:00)
[2025-05-06] MEDS ORDERED: hydrALAZINE HCL 20 MG VIAL IV STA (22:38)
[2025-05-06] MEDS ORDERED: hydrALAZINE HCL 20 MG VIAL IV PRN (22:45)
[2025-05-07] MEDS ORDERED: CEFAZOLIN SODIUM 1,000 MG VIAL IV SCH (01:00)
[2025-05-07 02:30] VITALS: BP 167/70; O2SAT 95
[2025-05-07 07:34] LABS: BASO % 0.3 % (0.1-1.2); EOS # 0.08 (0.04-0.54); EOS % 0.6 % (0.7-7.0); LYMPH # 0.93 (1.18-3.74); LYMPH % 6.4 % (19.3-53.1); MEAN PLATELET VOLUME 11.60 fl (9.4-12.4); MONO # 1.38 (0.24-0.82); MONO % 9.5 % (4.7-12.5); NEUT # 11.98 (1.56-6.13); NEUT % 82.7 % (34.0-71.1); RED CELL DISTRIBUTION WIDTH 14.3 % (11.6-14.4)
[2025-05-07 08:51] VITALS: BP 161/78; O2SAT 93
[2025-05-07] MEDS ORDERED: METOPROLOL TARTRATE 25 MG TABLET PO SCH (09:00)
[2025-05-07] MEDS ORDERED: TRAMADOL HCL 50 MG TABLET PO SCH (12:00)
[2025-05-07] MEDS ORDERED: MORPHINE SULFATE 2 MG/ML SYRINGE IV PRN (13:00)
[2025-05-07] MEDS ORDERED: CANDESARTAN CILEXETIL 16 MG TABLET PO SCH (17:00)
[2025-05-07 17:24] VITALS: BP 170/78; O2SAT 95
[2025-05-07] MEDS ORDERED: DOXAZOSIN MESYLATE 2 MG TABLET PO SCH (21:00)
[2025-05-08 03:25] VITALS: BP 122/66; O2SAT 97
[2025-05-08 07:56] LABS: BASO % 0.1 % (0.1-1.2); EOS # 0.25 (0.04-0.54); EOS % 1.7 % (0.7-7.0); LYMPH # 1.22 (1.18-3.74); LYMPH % 8.5 % (19.3-53.1); MEAN PLATELET VOLUME 11.30 fl (9.4-12.4); MONO # 0.96 (0.24-0.82); MONO % 6.7 % (4.7-12.5); NEUT # 11.78 (1.56-6.13); NEUT % 82.5 % (34.0-71.1); RED CELL DISTRIBUTION WIDTH 14.1 % (11.6-14.4)
[2025-05-08 08:39] LABS: BUN CREA RATIO 27.0 (7.0-25.0); CREATININE SERUM 1.42 mg/dL (0.70-1.30); GFR 48.09; GLUCOSE FASTING 115.0 mg/dL (65-100); OSMOLALITY SERUM 273.0 MOSM/KG (275-295)
[2025-05-08] MEDS ORDERED: SENNA/DOCUSATE SODIUM 1 TAB TABLET PO SCH (09:00)
[2025-05-08] MEDS ORDERED: 0.9 % SODIUM CHLORIDE 1,000 ML IV SCH (09:00)
[2025-05-08] MEDS ORDERED: APIXABAN 5 MG TABLET PO SCH (09:00)
[2025-05-08] MEDS ORDERED: METOPROLOL SUCCINATE 25 MG TAB.SR.24H PO SCH (09:00)
[2025-05-08] MEDS ORDERED: SOD FERRIC GLUC COMPLX/SUCROSE 62.5 MG in 0.9 % SODIUM CHLORIDE 50 ML IV SCH (09:00)
[2025-05-08 09:27] VITALS: BP 117/67; O2SAT 94
[2025-05-08 09:29] VITALS: BP 117/67; O2SAT 97
[2025-05-08 16:00] VITALS: BP 93/53; O2SAT 100
[2025-05-08] MEDS ORDERED: CEFTRIAXONE SODIUM 2,000 MG VIAL IV SCH (17:57)
[2025-05-09 00:30] VITALS: BP 108/66; O2SAT 97
[2025-05-09 07:52] LABS: BASO % 0.3 % (0.1-1.2); EOS # 0.62 (0.04-0.54); EOS % 7.0 % (0.7-7.0); LYMPH # 1.26 (1.18-3.74); LYMPH % 14.2 % (19.3-53.1); MEAN PLATELET VOLUME 11.00 fl (9.4-12.4); MONO # 0.72 (0.24-0.82); MONO % 8.1 % (4.7-12.5); NEUT # 6.22 (1.56-6.13); NEUT % 70.1 % (34.0-71.1); RED CELL DISTRIBUTION WIDTH 14.1 % (11.6-14.4)
[2025-05-09 08:23] LABS: ALT/SGPT 12.0 U/L (12-78); AST/SGOT 31.0 U/L (15-37); BILIRUBIN TOTAL 0.59 mg/dL (0.3-1.2); BUN CREA RATIO 35.0 (7.0-25.0); CREATININE SERUM 1.64 mg/dL (0.70-1.30); GFR 40.73; GLOBULINA 2.8 G/DL (2.4-3.5); GLUCOSE FASTING 106.0 mg/dL (65-100); OSMOLALITY SERUM 279.0 MOSM/KG (275-295); PROSTATIC SPECIFIC ANTIGEN 1.09 NG/ML (0.010-4.00)
[2025-05-09 08:42] VITALS: BP 145/75; O2SAT 98
[2025-05-09 09:11] LABS: URINE APPEARANCE Clear; URINE BILIRRUBIN Negative (NEGATIVE); URINE BLOOD Trace; URINE COLOR Yellow; URINE GLUCOSE Negative (NEGATIVE); URINE KETONE Negative (NEGATIVE); URINE LEUKOCYTE Negative; URINE NITRATE Negative; URINE PROTEIN Negative (NEGATIVE); URINE UROBILINOGEN 0.2 E.U./dl
[2025-05-09 09:14] LABS: URINE BACTERIA 6.8 uL (0.0-1933)
[2025-05-09 09:31] LABS: URINE CAST 0.00 uL (0.0-1.40); URINE EPITHELIAL CELLS 0.4 uL (0.0-38.8); URINE RBC 0.9 uL (0.0-20.8); URINE WBC 0.6 uL (0.0-23.2)
[2025-05-09 17:10] VITALS: BP 134/69; O2SAT 100
[2025-05-10 01:14] VITALS: BP 145/76; O2SAT 100
[2025-05-10 04:51] LABS: ob NEGATIVE (NEGATIVE)
[2025-05-10 07:30] VITALS: BP 170/75; O2SAT 97
[2025-05-10] MEDS ORDERED: hydrALAZINE HCL 20 MG VIAL IV PRN (13:45)
[2025-05-10 18:34] VITALS: BP 148/70; O2SAT 98
[2025-05-11 00:50] VITALS: BP 143/74; O2SAT 96
[2025-05-11 08:00] VITALS: BP 168/76; O2SAT 100
[2025-05-11 15:00] VITALS: BP 168/82; O2SAT 100
[2025-05-11 21:14] LABS: BASO % 0.8 % (0.1-1.2); EOS # 0.61 (0.04-0.54); EOS % 8.1 % (0.7-7.0); LYMPH # 1.35 (1.18-3.74); LYMPH % 17.9 % (19.3-53.1); MEAN PLATELET VOLUME 10.80 fl (9.4-12.4); MONO # 0.80 (0.24-0.82); MONO % 10.6 % (4.7-12.5); NEUT # 4.71 (1.56-6.13); NEUT % 62.2 % (34.0-71.1); RED CELL DISTRIBUTION WIDTH 15.5 % (11.6-14.4)
[2025-05-12 02:00] VITALS: BP 177/94; O2SAT 99
[2025-05-12 04:00] VITALS: BP 157/85
[2025-05-12 08:00] VITALS: BP 176/74; O2SAT 96
[2025-05-12] MEDS ORDERED: CETIRIZINE HCL 10 MG TABLET PO NR (12:30)
[2025-05-12] MEDS ORDERED: FLUTICASONE PROPIONATE 50 MCG SPRAY NASAL SCH (17:00)
[2025-05-13 00:30] VITALS: BP 156/81; O2SAT 99
[2025-05-13 06:44] LABS: BASO % 0.7 % (0.1-1.2); EOS # 1.00 (0.04-0.54); EOS % 10.7 % (0.7-7.0); LYMPH # 1.75 (1.18-3.74); LYMPH % 18.7 % (19.3-53.1); MEAN PLATELET VOLUME 10.50 fl (9.4-12.4); MONO # 0.96 (0.24-0.82); MONO % 10.3 % (4.7-12.5); NEUT # 5.54 (1.56-6.13); NEUT % 59.2 % (34.0-71.1); RED CELL DISTRIBUTION WIDTH 15.6 % (11.6-14.4)
[2025-05-13 07:17] LABS: BUN CREA RATIO 38.0 (7.0-25.0); CREATININE SERUM 1.1 mg/dL (0.70-1.30); GFR 64.57; GLUCOSE FASTING 101.0 mg/dL (65-100); OSMOLALITY SERUM 286.0 MOSM/KG (275-295)
[2025-05-13 08:00] VITALS: BP 177/82; O2SAT 98
[2025-05-13] MEDS ORDERED: CETIRIZINE HCL 10 MG TABLET PO SCH (09:00)
[2025-05-13 17:11] VITALS: BP 173/63; O2SAT 98
[2025-05-13 17:40] VITALS: BP 148/79
[2025-05-13] MEDS ORDERED: DOXAZOSIN MESYLATE 2 MG TABLET PO SCH (21:00)
== END 2025-05-13 20:30 | disposition home or self-care (01) | DRG 983 ==
LOC: ER 12:18 → SURH 18:19 → SURG 18:19 → SURH 05-03 08:15
PROVIDERS: General Practice; Internal Medicine; Internal Medicine Infectious Disease; Internal Medicine Nephrology; Orthopaedic Surgery; ADMIT Specialist; ATTEND Specialist
PROC: BT4JZZZ Ultrasonography of Kidneys and Bladder (ICD-10-PCS; 2025-04-29)
PROC: B246ZZZ Ultrasonography of Right and Left Heart (ICD-10-PCS; 2025-05-02)
PROC: 30233N1 Transfusion of Nonautologous Red Blood Cells into Peripheral Vein, Percutaneous Approach (ICD-10-PCS; 2025-05-06)
PROC: 0MQP0ZZ Repair Left Knee Bursa and Ligament, Open Approach (ICD-10-PCS; principal; 2025-05-06 14:30)
PROC: BW4GZZZ Ultrasonography of Pelvic Region (ICD-10-PCS; 2025-05-12)
DX: N17.8 Other acute kidney failure (principal); E87.5 Hyperkalemia; S76.112A Strain of left quadriceps muscle, fascia and tendon, initial encounter; S76.192A Other specified injury of left quadriceps muscle, fascia and tendon, initial encounter; I12.9 Hypertensive chronic kidney disease with stage 1 through stage 4 chronic kidney disease, or unspecified chronic kidney disease; N18.9 Chronic kidney disease, unspecified; M25.562 Pain in left knee; I48.91 Unspecified atrial fibrillation; D64.9 Anemia, unspecified; E03.9 Hypothyroidism, unspecified; E83.39 Other disorders of phosphorus metabolism; M66.852 Spontaneous rupture of other tendons, left thigh; D72.829 Elevated white blood cell count, unspecified